=== PATIENT | female | born 1985 | race Caucasian/White ===

== ENCOUNTER 2019-09-14 17:19 | Observation (INO) | payer BC ==
[~2019-09-14] VITALS: Ht 162.6 cm; Wt 61.0 kg
[2019-09-14] MEDS ORDERED: ONDANSETRON PF 4 MG/2 ML VIAL. IVP ONE (17:45)
[2019-09-14] MEDS ORDERED: IV NORMAL SALINE 1000ML BAG 1,000 ML IV ONE (17:45)
[2019-09-14 17:47] LABS: BASO % 0 % (0-3); EOS # 0.1 x10^3/uL (0.0-0.7); EOS % 1 % (0-3); HEMATOCRIT 36.6 % (36.0-47.0); HEMOGLOBIN 12.9 g/dL (12.0-15.5); LYMPH # 2.2 x10^3/uL (1.0-4.8); LYMPH % 21 % (24-48); MEAN CORPUSCULAR HEMOGLOBIN 32 pg (25-35); MEAN CORPUSCULAR HGB CONC 35 g/dL (31-37); MEAN CORPUSCULAR VOLUME 92 fL (79-100); MONO # 0.6 x10^3/uL (0.0-1.1); MONO % 6 % (0-9); NEUT # 7.8 x10^3/uL (1.8-7.7); NEUT % 73 % (31-73); PLATELET COUNT 227 x10^3/uL (140-400); RED BLOOD COUNT 3.98 x10^6/uL (3.50-5.40); RED CELL DISTRIBUTION WIDTH 12.6 % (11.5-14.5); WHITE BLOOD COUNT 10.8 x10^3/uL (4.0-11.0)
[2019-09-14 18:00] LABS: CALCIUM 8.3 mg/dL (8.5-10.1); CREATININE 0.9 mg/dL (0.6-1.0); GFR 72.1; POTASSIUM 3.2 mmol/L (3.5-5.1)
[2019-09-14 18:09] LABS: ALBUMIN 3.7 g/dL (3.4-5.0); ALBUMIN/GLOBULIN RATIO 1.2 (1.0-1.7); TOTAL BILIRUBIN 0.5 mg/dL (0.2-1.0); TOTAL PROTEIN 6.7 g/dL (6.4-8.2)
[2019-09-14 19:18] LABS: BILIRUBIN,URINE NEGATIVE (NEG); CLARITY,URINE CLEAR; COLOR,URINE YELLOW; NITRITE,URINE NEGATIVE (NEG); PROTEIN,URINE NEGATIVE (NEG-TRACE); UROBILINOGEN,URINE 0.2 mg/dL (0.2 mg/dL)
[2019-09-14 19:45] LABS: BACTERIA,URINE FEW /HPF (0-FEW); RBC,URINE TNTC /HPF (0-2); SQUAMOUS EPITHELIAL CELL,UR FEW /LPF
[2019-09-14] MEDS: POTASSIUM CHLORIDE 20 MEQ TABLET.ER. PO ONE ×2 (20:00→20:17)
--- NOTE | 2019-09-14 20:20 | RAD ---
[facility] OB ultrasound. INDICATION: Left pelvic pain. TECHNIQUE: Transabdominal and endovaginal ultrasound of the gravid uterus was performed with grayscale and color Doppler imaging. FINDINGS: Based on LMP of 08/09/2019, gestational age by dates is 5 weeks 1 day with estimated delivery date of May 15, 2020. Transabdominal images show a moderate amount of pelvic free fluid. There is suggestion of some fluid in the endometrial cavity but on endovaginal ultrasound, appropriate decidual reaction around this fluid is difficult to discern and thus considered gestational sac is not confidently excluded. After the patient went to void, the questioned intrauterine gestational sac was no longer visible. Endometrial stripe is measured 0.9 cm. Uterus measures 9.3 x 4.7 x 4.4 cm. The right ovary measures 3.8 x 2.6 x 1.6 cm and appears normal. It shows normal blood flow on spectral Doppler imaging. The left ovary is not well seen. Instead, the left adnexa, is a heterogeneous left adnexal mass 8.5 cm wide by 3.3 cm thick. IMPRESSION: In the setting of , findings are consistent with a of unknown location. Differential considerations include a completed spontaneous , ectopic , and less likely early intrauterine gestation with inaccurate dates. Recommend clinical correlation and follow-up. A ruptured ectopic has not been excluded. FOR INTERNAL CODING PURPOSES Critical result: Findings discussed with Dr. Amador at 09/14/2019 8:15 PM. RESULT CODE: (C) Electronically signed by: Samy Garcia MD (09/14/2019 8:17 PM) [facility] – [place]
--- NOTE | 2019-09-14 21:10 | PHYS DOC ---
Past Medical History Past Medical History: Endometriosis Additional Past Surgical Histo: x2 L knee Smoking Status: Never Smoker Alcohol Use: Rarely General Adult EDM: Chief Complaint: SYNCOPE HPI: HPI: Patient is a 34 year old female coming into the emergency department today for multiple complaints. Patient reports that today she has had 3 syncopal episodes. Patient reports that she does have a history of the syncopal episodes and has approximately 2 syncopal episodes every year. Her witnessed the syncopal episodes, he reports that 2 of them were while she was laying down and they lasted approximately 15 seconds. Patient's reports that he did not notice any shaking or tremors prior to syncopal episode but reports that 1 time she did stiffen up prior to having a syncopal episode. Patient is also reporting nausea and vomiting with the syncopal episodes. Patient is currently , she states that the was confirmed yesterday but today she began to have vaginal bleeding. She describes the bleeding as spotting on pantiliners but whenever she urinates there is increased blood in the toilet. She reports that she is not saturating any pantiliners. Her last menstrual mercy od was August 09, 2019, she is 2 para 1, with a history of endometriosis. She reports sharp crampy pain that began in the left lower quadrant today. She denies any radiation of the pain. She rates the pain 10 out of 10, she states the pain is better when she is lying flat, it increases when she stands up.. Patient has not taken anything today for pain and reports that her last meal was this morning. Review of Systems: Review of Systems: Constitutional: Denies fever or chills. [] Eyes: Denies change in visual acuity. [] HENT: Denies nasal congestion or sore throat. [] Respiratory: Denies cough or shortness of breath. [] Cardiovascular: Denies chest pain or edema. [] GI: Denies bloody stools, see HPI. [] : Denies dysuria, urinary frequency. [] Musculoskeletal: Denies back pain [] Neurologic: Denies headache, focal weakness or sensory changes, see HPI [] Psychiatric: Denies depression or anxiety. [] Heart Score: Risk Factors: Risk Factors: DM, Current or recent (<one month) smoker, HTN, HLP, family history of CAD, obesity. Risk Scores: Score 0 - 3: 2.5% MACE over next 6 weeks - Discharge Home Score 4 - 6: 20.3% MACE over next 6 weeks - Admit for Clinical Observation Score 7 - 10: 72.7% MACE over next 6 weeks - Early Invasive Strategies Current Medications: Current Medications Medications (Trade) Dose Ordered Sig/Vargas Start Time Stop Time Status Last Admin Dose Admin Ondansetron HCl (Zofran) 4 mg 1X ONCE 09/14/19 17:45 09/14/19 17:46 DC 09/14/19 17:51 4 MG Potassium Chloride (Klor-Con) 40 meq 1X ONCE 09/14/19 20:00 09/14/19 20:06 DC 09/14/19 20:17 40 MEQ Sodium Chloride 1,000 ml @ 1,000 mls/hr 1X ONCE 09/14/19 17:45 09/14/19 18:44 DC 09/14/19 17:50 1,000 MLS/HR Allergies: Allergies: Allergies Coded Allergies Type Severity Reaction Last Updated Verified No Known Drug Allergies 09/14/19 No Physical Exam: PE: Constitutional: Well developed, well nourished, no acute distress, non-toxic appearance. [] HENT: Normocephalic, atraumatic, bilateral external ears normal, oropharynx dry, lips dry, nose normal. [] Eyes: PERRLA, EOMI, conjunctiva normal, no discharge. [] Neck: Normal range of motion, no stridor. [] Cardiovascular:Heart rate regular rhythm, no murmur [] Lungs & Thorax: Bilateral breath sounds clear to auscultation, Respirations even and unlabored, no retractions, no respiratory distress [] Abdomen: Bowel sounds normal, soft, no masses, no pulsatile masses, tenderness with palpation to left lower quadrant, and suprapubic region Pelvic Exam: [employer] Worker present Stella REDDY External Genitalia: Normal Skin Speculum: Normal vaginal mucosa, bloody cervical discharge, office appears closed Bimanual: No adnexal masses, left adnexal tenderness, No CMT Skin: Warm, dry, no erythema, no rash. [] Extremities: No tenderness, no cyanosis, no clubbing, ROM intact, no edema. [] Neurologic: Alert and oriented X 3, normal motor function, normal sensory function, no focal deficits noted. [] Psychologic: Affect anxious, judgement normal, mood normal. [] Current Patient Data: Labs: Laboratory Tests Test 09/14/19 17:30 09/14/19 19:00 09/14/19 19:09 White Blood Count 10.8 x10^3/uL (4.0-11.0) Red Blood Count 3.98 x10^6/uL (3.50-5.40) Hemoglobin 12.9 g/dL (12.0-15.5) Hematocrit 36.6 % (36.0-47.0) Mean Corpuscular Volume 92 fL (79-100) Mean Corpuscular Hemoglobin 32 pg (25-35) Mean Corpuscular Hemoglobin Concent 35 g/dL (31-37) Red Cell Distribution Width 12.6 % (11.5-14.5) Platelet Count 227 x10^3/uL (140-400) Neutrophils (%) (Auto) 73 % (31-73) Lymphocytes (%) (Auto) 21 % (24-48) L Monocytes (%) (Auto) 6 % (0-9) Eosinophils (%) (Auto) 1 % (0-3) Basophils (%) (Auto) 0 % (0-3) Neutrophils # (Auto) 7.8 x10^3/uL (1.8-7.7) H Lymphocytes # (Auto) 2.2 x10^3/uL (1.0-4.8) Monocytes # (Auto) 0.6 x10^3/uL (0.0-1.1) Eosinophils # (Auto) 0.1 x10^3/uL (0.0-0.7) Basophils # (Auto) 0.0 x10^3/uL (0.0-0.2) Maternal Serum HCG Beta Subunit 458 mIU/mL (0-5) H Sodium Level 137 mmol/L (136-145) Potassium Level 3.2 mmol/L (3.5-5.1) L Chloride Level 101 mmol/L (98-107) Carbon Dioxide Level 24 mmol/L (21-32) Anion Gap 12 (6-14) Blood Urea Nitrogen 12 mg/dL (7-20) Creatinine 0.9 mg/dL (0.6-1.0) Estimated GFR (Cockcroft-Gault) 72.1 BUN/Creatinine Ratio 13 (6-20) Glucose Level 114 mg/dL (70-99) H Calcium Level 8.3 mg/dL (8.5-10.1) L Total Bilirubin 0.5 mg/dL (0.2-1.0) Aspartate Amino Transferase (AST) 15 U/L (15-37) Alanine Aminotransferase (ALT) 18 U/L (14-59) Alkaline Phosphatase 40 U/L (46-116) L Total Protein 6.7 g/dL (6.4-8.2) Albumin 3.7 g/dL (3.4-5.0) Albumin/Globulin Ratio 1.2 (1.0-1.7) Lipase 126 U/L (73-393) Urine Collection Type Unknown Urine Color Yellow Urine Clarity Clear Urine pH 7.0 (<5.0-8.0) Urine Specific [place] 1.020 (1.000-1.030) Urine Protein Negative mg/dL (NEG-TRACE) Urine Glucose (UA) Negative mg/dL (NEG) Urine Ketones (Stick) Trace mg/dL (NEG) Urine Blood Large (NEG) Urine Nitrite Negative (NEG) Urine Bilirubin Negative (NEG) Urine Urobilinogen Dipstick 0.2 mg/dL (0.2 mg/dL) Urine Leukocyte Esterase Negative (NEG) Urine RBC Tntc /HPF (0-2) Urine WBC 1-4 /HPF (0-4) Urine Squamous Epithelial Cells Few /LPF Urine Bacteria Few /HPF (0-FEW) POC Urine HCG, Qualitative Hcg positive (Negative) Laboratory Tests 09/14/19 17:30 Laboratory Tests 09/14/19 17:30 Vital Signs: Vital Signs Date Time Temp Pulse Resp B/P (MAP) Pulse Ox O2 Delivery O2 Flow Rate FiO2 09/14/19 17:25 99.3 72 16 102/71 (81) 99 Room Air 99.3 EKG: EKG: [] Radiology/Procedures: Radiology/Procedures: PROCEDURE: OB < 14 WKS First Res[facility] OB ultrasound. INDICATION: Left pelvic pain. TECHNIQUE: Transabdominal and endovaginal ultrasound of the gravid uterus was performed with grayscale and color Doppler imaging. FINDINGS: Based on LMP of 08/09/2019, gestational age by dates is 5 weeks 1 day with estimated delivery date of May 15, 2020. Transabdominal images show a moderate amount of pelvic free fluid. There is suggestion of some fluid in the endometrial cavity but on endovaginal ultrasound, appropriate decidual reaction around this fluid is difficult to discern and thus considered gestational sac is not confidently excluded. After the patient went to void, the questioned intrauterine gestational sac was no longer visible. Endometrial stripe is measured 0.9 cm. Uterus measures 9.3 x 4.7 x 4.4 cm. The right ovary measures 3.8 x 2.6 x 1.6 cm and appears normal. It shows normal blood flow on spectral Doppler imaging. The left ovary is not well seen. Instead, the left adnexa, is a heterogeneous left adnexal mass 8.5 cm wide by 3.3 cm thick. IMPRESSION: In the setting of , findings are consistent with a of unknown location. Differential considerations include a completed spontaneous , ectopic , and less likely early intrauterine gestation with inaccurate dates. Recommend clinical correlation and follow-up. A ruptured ectopic has not been excluded. [] Course & Med Decision Making: Course & Med Decision Making Pertinent Labs and Imaging studies reviewed. (See chart for details) Physical exam is concerning for ruptured ectopic . Work-up includes beta-hCG, CMP, CBC, UA, urine frag, lipase, and type and Rh. Will conduct pelvic exam and order a obstetrics ultrasound. Patient declines pain medication 1 L of normal saline and 4 mg of Zofran ordered Patient requests that ultrasound be performed prior to pelvic exam. 2039 During ambulation from bathroom patient became very lightheaded and was unable to ambulate. 2049-I spoke with Dr. Cleveland and advised of the abnormal ultrasound findings and patient near syncope when up to the bathroom. We will have the nurse prepare a surgical consent for laparoscopic left salpingectomy with possible oophorectomy. We will also order COVID-19 test for surgery. Will admit patient to Dr. Cleveland [] Era Disclaimer: Era Disclaimer: This electronic medical record was generated, in whole or in part, using a voice recognition dictation system. Departure Departure Impression: Primary Impression: Vaginal bleeding affecting early Additional Impression: Ectopic Qualified Codes: O00.90 - Unspecified ectopic without intrauterine Disposition: ADMITTED INPATIENT Admitting Physician: PASCUAL (Peghee) Condition: STABLE Referrals: UNKNOWN PCP NAME (PCP) Justicifation of Admission Dx: Justifications for Admission: Justification of Admission Dx: Yes Comments: Ruptured ectopic JUANY WELCH SLEDGER Sep 14, 2019 21:10
[2019-09-14] MEDS ORDERED: ROCURONIUM 50 MG/5 ML VIAL. ONE (21:23)
[2019-09-14] MEDS ORDERED: SUCCINYLCHOLINE 200 MG/10 ML VIAL. ONE (21:23)
[2019-09-14] MEDS ORDERED: fentaNYL PF VIAL 100 MCG/2 ML VIAL ONE (21:24)
[2019-09-14] MEDS ORDERED: SEVOFLURANE 31 TO 60 MINUTES. IH ONE (21:24)
[2019-09-14] MEDS ORDERED: ONDANSETRON PF 4 MG/2 ML VIAL. ONE (21:24)
[2019-09-14] MEDS ORDERED: PROPOFOL 10 MG/ML (20ML) VIAL. IV ONE ×2 (21:24→23:18)
[2019-09-14] MEDS ORDERED: DEXAMETHASONE SOD PHOS 20 MG/5 ML VIAL. ONE (21:24)
[2019-09-14] MEDS ORDERED: LIDOCAINE 2% PF 5 ML VIAL. ONE (21:24)
[2019-09-14] MEDS ORDERED: KETOROLAC 30 MG/ML VIAL. ONE (21:25)
[2019-09-14] MEDS ORDERED: fentaNYL PF VIAL 100 MCG/2 ML VIAL IV ONE (21:30)
[2019-09-14] MEDS ORDERED: ONDANSETRON PF 4 MG/2 ML VIAL. IV ONE (21:30)
[2019-09-14] MEDS ORDERED: IV RINGERS,LACTATED 1000ML 1,000 ML IV SCH (21:33)
[2019-09-14] MEDS ORDERED: SURGICEL HEMOSTAT 4X8 EACH. ONE (21:38)
--- NOTE | 2019-09-14 21:38 | PDOC1 ---
History and Physical Date of Admission Date of Admission DATE: 09/14/19 TIME: 21:33 Identification/Chief Complaint Chief Complaint abd pain Source Source: Chart review, Patient History of Present Illness History of Present Illness 34 y/o @ 6 wks by LMP with LLQ sharp pain that continued to worsen today. SHe also reports syncopal episodes for a few seconds followed by nausea with emesis. She reports h/o endometriosis. HCG 500. Pelvic sono with 8 cm mass in Left adnexa and free fluid in abdomen. Past Surgical History Past Surgical History: Tonsillectomy, Other (wisdom tooth and LPSC for endometriosis) Current Problem List Problem List Problems Medical Problems: (1) Threatened miscarriage in early Status: Acute (2) UTI (urinary tract infection) Status: Acute (3) Vaginal bleeding affecting early Status: Acute Current Medications Current Medications Current Medications Sodium Chloride 1,000 ml @ 1,000 mls/hr 1X ONCE IV Last administered on 09/14/19at 17:50; Start 09/14/19 at 17:45; Stop 09/14/19 at 18:44; Status DC Ondansetron HCl (Zofran) 4 mg 1X ONCE IVP Last administered on 09/14/19at 17:51; Start 09/14/19 at 17:45; Stop 09/14/19 at 17:46; Status DC Potassium Chloride (Klor-Con) 40 meq 1X ONCE PO ; Start 09/14/19 at 20:00; Stop 09/14/19 at 20:06; Status DC Fentanyl Citrate (Fentanyl 2ml Vial) 50 mcg 1X ONCE IV ; Start 09/14/19 at 21:30; Stop 09/14/19 at 21:31; Status DC Ondansetron HCl (Zofran) 4 mg 1X ONCE IV ; Start 09/14/19 at 21:30; Stop 09/14/19 at 21:31; Status DC Succinylcholine Chloride (Anectine) 200 mg STK-MED ONCE .ROUTE ; Start 09/14/19 at 21:23; Stop 09/14/19 at 21:24; Status DC Rocuronium Lamont (Zemuron) 50 mg STK-MED ONCE .ROUTE ; Start 09/14/19 at 21:23; Stop 09/14/19 at 21:24; Status DC Fentanyl Citrate (Fentanyl 2ml Vial) 100 mcg STK-MED ONCE .ROUTE ; Start 09/14/19 at 21:24; Stop 09/14/19 at 21:24; Status DC Sevoflurane (Ultane) 30 ml STK-MED ONCE IH ; Start 09/14/19 at 21:24; Stop 09/14/19 at 21:25; Status DC Propofol (Diprivan) 200 mg STK-MED ONCE IV ; Start 09/14/19 at 21:24; Stop 09/14/19 at 21:25; Status DC Lidocaine HCl (Lidocaine Pf 2% Vial) 5 ml STK-MED ONCE .ROUTE ; Start 09/14/19 at 21:24; Stop 09/14/19 at 21:25; Status DC Dexamethasone Sodium Phosphate (Decadron) 20 mg STK-MED ONCE .ROUTE ; Start 09/14/19 at 21:24; Stop 09/14/19 at 21:25; Status DC Ondansetron HCl (Zofran) 4 mg STK-MED ONCE .ROUTE ; Start 09/14/19 at 21:24; Stop 09/14/19 at 21:25; Status DC Ketorolac Tromethamine (Toradol 30mg Vial) 30 mg STK-MED ONCE .ROUTE ; Start 09/14/19 at 21:25; Stop 09/14/19 at 21:25; Status DC Allergies Allergies: Coded Allergies: No Known Drug Allergies (Unverified , 09/14/19) ROS General: YES: Fatigue, Malaise, Appetite; No: Chills, Night Sweats, Other PSYCHOLOGICAL ROS: YES: Anxiety; No: Behavioral Disorder, Concentration difficultie, Decreased libido, Depression, Disorientation, Hallucinations, Hostility, Irritablity, Memory difficulties, Mood Swings, Obsessive thoughts, Physical abuse, Sexual abuse, Sleep disturbances, Suicidal ideation, Other Eyes: No Blurry vision, No Decreased vision, No Double vision, No Dry eyes, No Excessive tearing, No Eye Pain, No Itchy Eyes, No Loss of vision, No Photophobia, No Scotomata, No Uses contacts, No Uses glasses, No Other HEENT: No: Heacaches, Visual Changes, Hearing change, Nasal congestion, Nasal discharge, Oral lesions, Sinus pain, Sore Throat, Epistaxis, Sneezing, Snoring, Tinnitus, Vertigo, Vocal changes, Other ALLERGY AND IMMUNOLOGY: No: Hives, Insect Bite Sensitivity, Itchy/Watery Eyes, Nasal Congestion, Post Nasal Drip, Seasonal Allergies, Other Hematological and Lymphatic: No: Bleeding Problems, Blood Clots, Blood Transfusions, Brusing, Night Sweats, Pallor, Swollen Lymph Nodes, Other ENDOCRINE: No: Breast Changes, Galactorrhea, Hair Pattern Changes, Hot Flashes, Malaise/lethargy, Mood Swings, Palpitations, Polydipsia/polyuria, Skin Changes, Temperature Intolerance, Unexpected Weight Changes, Other Respiratory: No: Cough, Hemoptysis, Orthopnea, Pleuritic Pain, Shortness of breath, SOB with excertion, Sputum Changes, Stridor, Tachypnea, Wheezing, Other Cardiovascular: No Chest Pain, No Palpitations, No Orthopnea, No Paroxysmal Noc . Dyspnea, No Edema, No Lt Headedness, No Other Gastrointestinal: Yes Nausea, Yes Vomiting, Yes Abdominal Pain Genitourinary: No Dysuria, No Frequency, No Incontinence, No Hematuria, No Retention, No Discharge, No Urgency, No Pain, No Flank Pain, No Other, No , No , No , No , No , No , No Skin: No Dry Skin, No Eczema, No Hair Changes, No Lumps, No Mole Changes, No Mottling, No Nail Changes, No Pruritus, No Rash, No Skin Lesion Changes, No Other, No Acne Physical Exam General: Alert, Oriented X3, Cooperative HEENT: Mucous membr. moist/pink Lungs: Clear to auscultation Heart: S1S2 Abdomen: Soft, Other (LLQ tenderness with rebound tenderness) PELVIC: Other (BME deferred) Psych/Mental Status: Mental status NL Vitals Vitals Vital Signs Date Time Temp Pulse Resp B/P (MAP) Pulse Ox O2 Delivery O2 Flow Rate FiO2 09/14/19 20:32 91 128/74 (92) 100 Room Air 09/14/19 18:09 20 09/14/19 17:25 99.3 99.3 Labs Labs Laboratory Tests Test 09/14/19 17:30 09/14/19 19:00 09/14/19 19:09 White Blood Count 10.8 x10^3/uL (4.0-11.0) Red Blood Count 3.98 x10^6/uL (3.50-5.40) Hemoglobin 12.9 g/dL (12.0-15.5) Hematocrit 36.6 % (36.0-47.0) Mean Corpuscular Volume 92 fL (79-100) Mean Corpuscular Hemoglobin 32 pg (25-35) Mean Corpuscular Hemoglobin Concent 35 g/dL (31-37) Red Cell Distribution Width 12.6 % (11.5-14.5) Platelet Count 227 x10^3/uL (140-400) Neutrophils (%) (Auto) 73 % (31-73) Lymphocytes (%) (Auto) 21 % (24-48) Monocytes (%) (Auto) 6 % (0-9) Eosinophils (%) (Auto) 1 % (0-3) Basophils (%) (Auto) 0 % (0-3) Neutrophils # (Auto) 7.8 x10^3/uL (1.8-7.7) Lymphocytes # (Auto) 2.2 x10^3/uL (1.0-4.8) Monocytes # (Auto) 0.6 x10^3/uL (0.0-1.1) Eosinophils # (Auto) 0.1 x10^3/uL (0.0-0.7) Basophils # (Auto) 0.0 x10^3/uL (0.0-0.2) Maternal Serum HCG Beta Subunit 458 mIU/mL (0-5) Sodium Level 137 mmol/L (136-145) Potassium Level 3.2 mmol/L (3.5-5.1) Chloride Level 101 mmol/L (98-107) Carbon Dioxide Level 24 mmol/L (21-32) Anion Gap 12 (6-14) Blood Urea Nitrogen 12 mg/dL (7-20) Creatinine 0.9 mg/dL (0.6-1.0) Estimated GFR (Cockcroft-Gault) 72.1 BUN/Creatinine Ratio 13 (6-20) Glucose Level 114 mg/dL (70-99) Calcium Level 8.3 mg/dL (8.5-10.1) Total Bilirubin 0.5 mg/dL (0.2-1.0) Aspartate Amino Transf (AST/SGOT) 15 U/L (15-37) Alanine Aminotransferase (ALT/SGPT) 18 U/L (14-59) Alkaline Phosphatase 40 U/L (46-116) Total Protein 6.7 g/dL (6.4-8.2) Albumin 3.7 g/dL (3.4-5.0) Albumin/Globulin Ratio 1.2 (1.0-1.7) Lipase 126 U/L (73-393) Urine Collection Type Unknown Urine Color Yellow Urine Clarity Clear Urine pH 7.0 (<5.0-8.0) Urine Specific [place] 1.020 (1.000-1.030) Urine Protein Negative mg/dL (NEG-TRACE) Urine Glucose (UA) Negative mg/dL (NEG) Urine Ketones (Stick) Trace mg/dL (NEG) Urine Blood Large (NEG) Urine Nitrite Negative (NEG) Urine Bilirubin Negative (NEG) Urine Urobilinogen Dipstick 0.2 mg/dL (0.2 mg/dL) Urine Leukocyte Esterase Negative (NEG) Urine RBC Tntc /HPF (0-2) Urine WBC 1-4 /HPF (0-4) Urine Squamous Epithelial Cells Few /LPF Urine Bacteria Few /HPF (0-FEW) Bedside Urine HCG, Qualitative Hcg positive (Negative) Laboratory Tests Test 09/14/19 17:30 09/14/19 19:00 09/14/19 19:09 White Blood Count 10.8 x10^3/uL (4.0-11.0) Red Blood Count 3.98 x10^6/uL (3.50-5.40) Hemoglobin 12.9 g/dL (12.0-15.5) Hematocrit 36.6 % (36.0-47.0) Mean Corpuscular Volume 92 fL (79-100) Mean Corpuscular Hemoglobin 32 pg (25-35) Mean Corpuscular Hemoglobin Concent 35 g/dL (31-37) Red Cell Distribution Width 12.6 % (11.5-14.5) Platelet Count 227 x10^3/uL (140-400) Neutrophils (%) (Auto) 73 % (31-73) Lymphocytes (%) (Auto) 21 % (24-48) Monocytes (%) (Auto) 6 % (0-9) Eosinophils (%) (Auto) 1 % (0-3) Basophils (%) (Auto) 0 % (0-3) Neutrophils # (Auto) 7.8 x10^3/uL (1.8-7.7) Lymphocytes # (Auto) 2.2 x10^3/uL (1.0-4.8) Monocytes # (Auto) 0.6 x10^3/uL (0.0-1.1) Eosinophils # (Auto) 0.1 x10^3/uL (0.0-0.7) Basophils # (Auto) 0.0 x10^3/uL (0.0-0.2) Maternal Serum HCG Beta Subunit 458 mIU/mL (0-5) Sodium Level 137 mmol/L (136-145) Potassium Level 3.2 mmol/L (3.5-5.1) Chloride Level 101 mmol/L (98-107) Carbon Dioxide Level 24 mmol/L (21-32) Anion Gap 12 (6-14) Blood Urea Nitrogen 12 mg/dL (7-20) Creatinine 0.9 mg/dL (0.6-1.0) Estimated GFR (Cockcroft-Gault) 72.1 BUN/Creatinine Ratio 13 (6-20) Glucose Level 114 mg/dL (70-99) Calcium Level 8.3 mg/dL (8.5-10.1) Total Bilirubin 0.5 mg/dL (0.2-1.0) Aspartate Amino Transf (AST/SGOT) 15 U/L (15-37) Alanine Aminotransferase (ALT/SGPT) 18 U/L (14-59) Alkaline Phosphatase 40 U/L (46-116) Total Protein 6.7 g/dL (6.4-8.2) Albumin 3.7 g/dL (3.4-5.0) Albumin/Globulin Ratio 1.2 (1.0-1.7) Lipase 126 U/L (73-393) Urine Collection Type Unknown Urine Color Yellow Urine Clarity Clear Urine pH 7.0 (<5.0-8.0) Urine Specific [place] 1.020 (1.000-1.030) Urine Protein Negative mg/dL (NEG-TRACE) Urine Glucose (UA) Negative mg/dL (NEG) Urine Ketones (Stick) Trace mg/dL (NEG) Urine Blood Large (NEG) Urine Nitrite Negative (NEG) Urine Bilirubin Negative (NEG) Urine Urobilinogen Dipstick 0.2 mg/dL (0.2 mg/dL) Urine Leukocyte Esterase Negative (NEG) Urine RBC Tntc /HPF (0-2) Urine WBC 1-4 /HPF (0-4) Urine Squamous Epithelial Cells Few /LPF Urine Bacteria Few /HPF (0-FEW) Bedside Urine HCG, Qualitative Hcg positive (Negative) VTE Prophylaxis Ordered VTE Prophylaxis Devices: Yes VTE Pharmacological Prophylaxi: No Assessment/Plan Assessment/Plan A: Ruptured Left ectopic P: Plan LPSC Left salpingectomy with possible oophorectomy. Justicifation of Admission Dx: Justifications for Admission: Justification of Admission Dx: Yes DARIO SCHUMACHER Jr, MD Sep 14, 2019 21:38
[2019-09-14] MEDS ORDERED: BUPIVACAINE-EPI 0.25%-1:200000 MPF 30 ML VIAL. ONE (21:39)
[2019-09-14] MEDS ORDERED: SCOPOLAMINE 1.5MG PATCH. TD ONE ×2 (21:44→22:00)
[2019-09-14] MEDS ORDERED: ONDANSETRON PF 4 MG/2 ML VIAL. IV PRN ×2 (21:45→23:15)
[2019-09-14] MEDS ORDERED: ceFAZolin SODIUM IV Push 1 GM VIAL. IVP ONE (21:45)
[2019-09-14] MEDS ORDERED: HYDROmorphone 2 MG/ML VIAL IV PRN (21:45)
[2019-09-14] MEDS ORDERED: PROCHLORPERAZINE 10 MG/2 ML VIAL. IV PRN ×2 (21:45→23:15)
[2019-09-14] MEDS ORDERED: MORPHINE SULFATE 2 MG/ML VIAL. IV PRN (21:45)
[2019-09-14] MEDS ORDERED: fentaNYL PF VIAL 100 MCG/2 ML VIAL IV PRN ×2 (21:45)
[2019-09-14] MEDS ORDERED: NEOSTIGMINE METHYLSULFATE 5 MG/5 ML SYRINGE. ONE (22:52)
[2019-09-14] MEDS ORDERED: GLYCOPYRROLATE 1 MG/5 ML VIAL. ONE (22:53)
--- NOTE | 2019-09-14 23:14 | PDOC ---
BRIEF OPERATIVE NOTE Date: Sep 14, 2019 Pre-Op Diagnosis Ruptured Left Ectopic Post-Op Diagnosis Same Procedure Performed [facility] Left Salpingectomy Surgeon Dr. Cleveland Anesthesia Type: General Blood Loss 50 ml Specimens Obtained Left fallopian tube with ectopic Findings Ruptured Left ectopic , nml Right fallopian tube and nml ovaries gretchen.; 50 ml blood clot in abdomen Complications none Operative Note see dictation DARIO CLEVELAND Jr, MD Sep 14, 2019 23:14
[2019-09-14] MEDS ORDERED: ZOLPIDEM 5 MG TABLET. PO PRN (23:15)
[2019-09-14] MEDS ORDERED: KETOROLAC 30 MG/ML VIAL. IV PRN (23:15)
[2019-09-14] MEDS ORDERED: diphenhydrAMINE 50 MG/ML VIAL IV PRN (23:15)
[2019-09-14] MEDS ORDERED: oxyCODONE/APAP 5/325 1 TAB TABLET PO PRN (23:15)
[2019-09-14] MEDS ORDERED: DEXTROSE 50% 25 GM / 50ML DISP.SYRIN. IV PRN (23:15)
[2019-09-14] MEDS ORDERED: diphenhydrAMINE HCL 25 MG CAPSULE PO PRN (23:15)
[2019-09-14] MEDS ORDERED: SIMETHICONE 80 MG TAB.CHEW PO PRN (23:15)
[2019-09-14] MEDS ORDERED: 0.9 % SODIUM CHLORIDE 10 ML DISP.SYRIN. IV PRN (23:15)
[2019-09-14] MEDS ORDERED: CALCIUM CARBONATE 500 MG TAB.CHEW PO PRN (23:15)
[2019-09-15] VITALS (9 sets, daily range): BP systolic 91–109; BP diastolic 40–67
--- NOTE | 2019-09-15 00:52 | OP ---
DATE OF SURGERY: 09/14/2019 PREOPERATIVE DIAGNOSIS: Ruptured left ectopic . POSTOPERATIVE DIAGNOSIS: Ruptured left ectopic . PROCEDURE: Laparoscopic left salpingectomy. SURGEON: Jeffry Cleveland MD ANESTHESIA: GETA. ESTIMATED BLOOD LOSS: 50 mL. COMPLICATIONS: None. FINDINGS: Ruptured left ectopic with 50 mL of blood clot in the abdomen with some active bleeding from the left fallopian tube, normal right fallopian tube, normal ovaries bilaterally. SUMMARY: A 34-year-old 2, para 1 at about 6-7 weeks' gestation who presented with acute abdominal pain in the left lower quadrant that continued to worsen with light vaginal spotting. The patient was found to have a ruptured ectopic in the left adnexal area per sonogram and clinical findings. She was counseled on the risks, benefits and expectations of laparoscopic left salpingectomy and possibility of oophorectomy and voiced clear understanding to proceed. DESCRIPTION OF PROCEDURE: The patient was taken to surgery suite and placed in dorsal lithotomy position. She was prepped with Betadine solution for vaginal prep and ChloraPrep for abdominal prep. After adequate anesthesia, bivalve speculum was placed vaginally. The anterior lip of the cervix grasped with single tooth tenaculum. Cutler uterine manipulator was then placed. The bivalve speculum was removed. Attention was now placed on abdomen. Small transverse skin incision was made just below the umbilicus with a scalpel. The Veress needle was then placed through the infraumbilical incision site. The abdomen was allowed to insufflate up to 1-1/2 liters CO2 gas. The Veress needle was then removed, 5 mm trocar was placed. The scope was positioned. There was moderate amount of blood in the abdominal cavity. Two additional ports were placed in the left lower quadrant, of which one was a 5-mm port as well as an 11 mm port. With aid of suction irrigation, the blood clot was removed. There appeared to be active bleeding still from the left fallopian tube, which also contained the ectopic . With the aid of the EnSeal device, the distal left salpingectomy was performed. The left fallopian tube including the ectopic was removed with aid of Endobag. Adnexa was hemostatic. Suction irrigation was utilized to verify good hemostasis and remove additional blood clot. Small amount of normal saline was left in posterior cul-de-sac. The right fallopian tube and right ovary appeared normal. Left ovary appeared normal. The trocars were then removed under direct visualization. The abdomen was allowed to deflate as much as possible along with mechanical manipulation. The 11 mm port was closed at the fascial layer using 2-0 Vicryl suture in [id number] manner. The 3 skin incisions were closed at the skin level using 4-0 Vicryl suture in a subcuticular manner. A 0.25% Marcaine with epinephrine was injected at each incision site. The uterine acorn manipulator and single tooth tenaculum were removed. The patient tolerated the procedure well and was taken to recovery room in stable condition. Sponge and needle count correct x 3. JEFFRY CLEVELAND MD DR: ODALIS/violet JOB#: [id number] / [id number]
[2019-09-15 05:04] LABS: BASO % 0 % (0-3); EOS % 0 % (0-3); HEMATOCRIT 31.9 % (36.0-47.0); HEMOGLOBIN 11.1 g/dL (12.0-15.5); LYMPH # 0.7 x10^3/uL (1.0-4.8); LYMPH % 7 % (24-48); MEAN CORPUSCULAR HEMOGLOBIN 32 pg (25-35); MEAN CORPUSCULAR HGB CONC 35 g/dL (31-37); MEAN CORPUSCULAR VOLUME 92 fL (79-100); MONO # 0.2 x10^3/uL (0.0-1.1); MONO % 2 % (0-9); NEUT # 9.2 x10^3/uL (1.8-7.7); NEUT % 91 % (31-73); PLATELET COUNT 199 x10^3/uL (140-400); RED BLOOD COUNT 3.45 x10^6/uL (3.50-5.40); RED CELL DISTRIBUTION WIDTH 12.4 % (11.5-14.5); WHITE BLOOD COUNT 10.1 x10^3/uL (4.0-11.0)
[2019-09-15] MEDS ORDERED: GABAPENTIN 300 MG CAPSULE. PO SCH (06:00)
[2019-09-15 07:19] LABS: % BASOS 1 % (0-3); % LYMPHS 10 % (24-48); % MONOS 1 % (0-10); % SEGS 88 % (35-66); PLT ESTIMATE ADEQUATE (ADEQUATE)
--- NOTE | 2019-09-15 14:59 | PDOC ---
SURGICAL PROGRESS NOTE Subjective Pt. feeling well. Pain well controlled. Vital Signs Vital Signs Date Time Temp Pulse Resp B/P (MAP) Pulse Ox O2 Delivery O2 Flow Rate FiO2 09/15/19 10:26 98.1 67 16 100/60 (73) 99 Room Air 98.1 09/14/19 23:28 10 I&O Intake and Output 09/15/19 07:00 Intake Total 2450 ml Output Total 50 ml Balance 2400 ml IV Total 2450 ml Output Estimated Blood Loss 50 ml # Voids 1 General: Alert, Oriented X3, Cooperative HEENT: Atraumatic Lungs: Clear to auscultation Heart: Regular rate Abdomen: Normal bowel sounds, Soft, No tenderness, No masses Neuro: Normal gait Psych/Mental Status: Mental status NL Labs Laboratory Tests Test 09/14/19 17:30 09/14/19 19:00 09/14/19 19:09 09/15/19 04:50 White Blood Count 10.8 x10^3/uL (4.0-11.0) 10.1 x10^3/uL (4.0-11.0) Red Blood Count 3.98 x10^6/uL (3.50-5.40) 3.45 x10^6/uL (3.50-5.40) Hemoglobin 12.9 g/dL (12.0-15.5) 11.1 g/dL (12.0-15.5) Hematocrit 36.6 % (36.0-47.0) 31.9 % (36.0-47.0) Mean Corpuscular Volume 92 fL (79-100) 92 fL (79-100) Mean Corpuscular Hemoglobin 32 pg (25-35) 32 pg (25-35) Mean Corpuscular Hemoglobin Concent 35 g/dL (31-37) 35 g/dL (31-37) Red Cell Distribution Width 12.6 % (11.5-14.5) 12.4 % (11.5-14.5) Platelet Count 227 x10^3/uL (140-400) 199 x10^3/uL (140-400) Neutrophils (%) (Auto) 73 % (31-73) 91 % (31-73) Lymphocytes (%) (Auto) 21 % (24-48) 7 % (24-48) Monocytes (%) (Auto) 6 % (0-9) 2 % (0-9) Eosinophils (%) (Auto) 1 % (0-3) 0 % (0-3) Basophils (%) (Auto) 0 % (0-3) 0 % (0-3) Neutrophils # (Auto) 7.8 x10^3/uL (1.8-7.7) 9.2 x10^3/uL (1.8-7.7) Lymphocytes # (Auto) 2.2 x10^3/uL (1.0-4.8) 0.7 x10^3/uL (1.0-4.8) Monocytes # (Auto) 0.6 x10^3/uL (0.0-1.1) 0.2 x10^3/uL (0.0-1.1) Eosinophils # (Auto) 0.1 x10^3/uL (0.0-0.7) 0.0 x10^3/uL (0.0-0.7) Basophils # (Auto) 0.0 x10^3/uL (0.0-0.2) 0.0 x10^3/uL (0.0-0.2) Maternal Serum HCG Beta Subunit 458 mIU/mL (0-5) Sodium Level 137 mmol/L (136-145) Potassium Level 3.2 mmol/L (3.5-5.1) Chloride Level 101 mmol/L (98-107) Carbon Dioxide Level 24 mmol/L (21-32) Anion Gap 12 (6-14) Blood Urea Nitrogen 12 mg/dL (7-20) Creatinine 0.9 mg/dL (0.6-1.0) Estimated GFR (Cockcroft-Gault) 72.1 BUN/Creatinine Ratio 13 (6-20) Glucose Level 114 mg/dL (70-99) Calcium Level 8.3 mg/dL (8.5-10.1) Total Bilirubin 0.5 mg/dL (0.2-1.0) Aspartate Amino Transf (AST/SGOT) 15 U/L (15-37) Alanine Aminotransferase (ALT/SGPT) 18 U/L (14-59) Alkaline Phosphatase 40 U/L (46-116) Total Protein 6.7 g/dL (6.4-8.2) Albumin 3.7 g/dL (3.4-5.0) Albumin/Globulin Ratio 1.2 (1.0-1.7) Lipase 126 U/L (73-393) Urine Collection Type Unknown Urine Color Yellow Urine Clarity Clear Urine pH 7.0 (<5.0-8.0) Urine Specific [place] 1.020 (1.000-1.030) Urine Protein Negative mg/dL (NEG-TRACE) Urine Glucose (UA) Negative mg/dL (NEG) Urine Ketones (Stick) Trace mg/dL (NEG) Urine Blood Large (NEG) Urine Nitrite Negative (NEG) Urine Bilirubin Negative (NEG) Urine Urobilinogen Dipstick 0.2 mg/dL (0.2 mg/dL) Urine Leukocyte Esterase Negative (NEG) Urine RBC Tntc /HPF (0-2) Urine WBC 1-4 /HPF (0-4) Urine Squamous Epithelial Cells Few /LPF Urine Bacteria Few /HPF (0-FEW) Bedside Urine HCG, Qualitative Hcg positive (Negative) Segmented Neutrophils % 88 % (35-66) Lymphocytes % 10 % (24-48) Monocytes % 1 % (0-10) Basophils % 1 % (0-3) Platelet Estimate Adequate (ADEQUATE) Laboratory Tests Test 09/14/19 17:30 09/14/19 19:00 09/14/19 19:09 09/15/19 04:50 White Blood Count 10.8 x10^3/uL (4.0-11.0) 10.1 x10^3/uL (4.0-11.0) Red Blood Count 3.98 x10^6/uL (3.50-5.40) 3.45 x10^6/uL (3.50-5.40) Hemoglobin 12.9 g/dL (12.0-15.5) 11.1 g/dL (12.0-15.5) Hematocrit 36.6 % (36.0-47.0) 31.9 % (36.0-47.0) Mean Corpuscular Volume 92 fL (79-100) 92 fL (79-100) Mean Corpuscular Hemoglobin 32 pg (25-35) 32 pg (25-35) Mean Corpuscular Hemoglobin Concent 35 g/dL (31-37) 35 g/dL (31-37) Red Cell Distribution Width 12.6 % (11.5-14.5) 12.4 % (11.5-14.5) Platelet Count 227 x10^3/uL (140-400) 199 x10^3/uL (140-400) Neutrophils (%) (Auto) 73 % (31-73) 91 % (31-73) Lymphocytes (%) (Auto) 21 % (24-48) 7 % (24-48) Monocytes (%) (Auto) 6 % (0-9) 2 % (0-9) Eosinophils (%) (Auto) 1 % (0-3) 0 % (0-3) Basophils (%) (Auto) 0 % (0-3) 0 % (0-3) Neutrophils # (Auto) 7.8 x10^3/uL (1.8-7.7) 9.2 x10^3/uL (1.8-7.7) Lymphocytes # (Auto) 2.2 x10^3/uL (1.0-4.8) 0.7 x10^3/uL (1.0-4.8) Monocytes # (Auto) 0.6 x10^3/uL (0.0-1.1) 0.2 x10^3/uL (0.0-1.1) Eosinophils # (Auto) 0.1 x10^3/uL (0.0-0.7) 0.0 x10^3/uL (0.0-0.7) Basophils # (Auto) 0.0 x10^3/uL (0.0-0.2) 0.0 x10^3/uL (0.0-0.2) Maternal Serum HCG Beta Subunit 458 mIU/mL (0-5) Sodium Level 137 mmol/L (136-145) Potassium Level 3.2 mmol/L (3.5-5.1) Chloride Level 101 mmol/L (98-107) Carbon Dioxide Level 24 mmol/L (21-32) Anion Gap 12 (6-14) Blood Urea Nitrogen 12 mg/dL (7-20) Creatinine 0.9 mg/dL (0.6-1.0) Estimated GFR (Cockcroft-Gault) 72.1 BUN/Creatinine Ratio 13 (6-20) Glucose Level 114 mg/dL (70-99) Calcium Level 8.3 mg/dL (8.5-10.1) Total Bilirubin 0.5 mg/dL (0.2-1.0) Aspartate Amino Transf (AST/SGOT) 15 U/L (15-37) Alanine Aminotransferase (ALT/SGPT) 18 U/L (14-59) Alkaline Phosphatase 40 U/L (46-116) Total Protein 6.7 g/dL (6.4-8.2) Albumin 3.7 g/dL (3.4-5.0) Albumin/Globulin Ratio 1.2 (1.0-1.7) Lipase 126 U/L (73-393) Urine Collection Type Unknown Urine Color Yellow Urine Clarity Clear Urine pH 7.0 (<5.0-8.0) Urine Specific [place] 1.020 (1.000-1.030) Urine Protein Negative mg/dL (NEG-TRACE) Urine Glucose (UA) Negative mg/dL (NEG) Urine Ketones (Stick) Trace mg/dL (NEG) Urine Blood Large (NEG) Urine Nitrite Negative (NEG) Urine Bilirubin Negative (NEG) Urine Urobilinogen Dipstick 0.2 mg/dL (0.2 mg/dL) Urine Leukocyte Esterase Negative (NEG) Urine RBC Tntc /HPF (0-2) Urine WBC 1-4 /HPF (0-4) Urine Squamous Epithelial Cells Few /LPF Urine Bacteria Few /HPF (0-FEW) Bedside Urine HCG, Qualitative Hcg positive (Negative) Segmented Neutrophils % 88 % (35-66) Lymphocytes % 10 % (24-48) Monocytes % 1 % (0-10) Basophils % 1 % (0-3) Platelet Estimate Adequate (ADEQUATE) Problem List Problems Medical Problems: (1) Threatened miscarriage in early Status: Acute (2) UTI (urinary tract infection) Status: Acute (3) Vaginal bleeding affecting early Status: Acute Assessment/Plan A: POD#1 s/p LPSC Left Salpingectomy P: D/c home. Justicifation of Admission Dx: Justifications for Admission: Justification of Admission Dx: Yes DARIO SCHUMACHER Jr, MD Sep 15, 2019 14:59
--- NOTE | 2019-09-15 15:02 | DISCH ---
DISCHARGE INSTRUCTIONS Condition on Discharge Condition on Discharge: Stable Activity After Discharge Activity Instructions for Disc: Activity as tolerated Lifting Instructions after Dis: No heavy lifting Driving Instructions after Dis: Do not drive today Diet after Discharge Diet after Discharge: Regular Contacting the DRRebecca after DC Call your doctor for: Concerns you may have Follow-Up Follow up with: Dr. Cleveland in 1 wk DARIO CLEVELAND Jr, MD Sep 15, 2019 15:02
--- NOTE | 2019-09-15 15:30 | NUR ---
Discharge and follow up instructions reviewed and given to pt along with a Rx for percocet. Pt denied and questions or complaints, pt ambulated out of the hospital with staff by her side.
--- NOTE | 2019-09-17 17:06 | PATHOLOGY ---
[facility] [place] Accession Number: [id number] . 01 Material submitted: . fallopian tube - LEFT FALLOPIAN TUBE AND ECTOPIC . Modifiers: left . 01 Clinical history: . ruptured ectopic . 02 Diagnosis: Segment of fallopian tube, laparoscopic distal left salpingectomy: - Ectopic tubal . - Hematosalpinx. - Small paratubal cyst. (JPM/db; 09/17/2019) LBQ 09/17/2019 1540 Local . 02 Electronically signed: . Raul Gonzalez MD, Pathologist NPI- [id number] . 01 Gross description: . The specimen is received in formalin, labeled "Malina Encarnacion, left fallopian tube and ectopic " and consists of an intact purple hemorrhagic fimbriated fallopian tube measuring 5.8 cm in length and up to 2.1 cm in diameter. At the fimbriated aspect there is adherent blood coagulum. Sectioning reveals a lumen ranging from pinpoint up to 1.1 cm in diameter containing blood coagulum and possible villiform tissue. or embryonic tissue is not grossly identified. [employer] sections are submitted in A1-A3. (JM; 09/16/2019) JFQ/JFQ 09/16/2019 1618 Local . 02 Pathologist provided ICD-10: O00.102, N83.6, N83.8 . 02 CPT . 064486 Specimen Comment: A courtesy copy of this report has been sent to [phone] Specimen Comment: Report sent to Performed at: [address], [place], [place] [id number] MD Job Yeung MD Phone: [phone] Performed at: 02 [facility] [address], [place] [id number] MD Raul Gonzalez MD Phone: [phone]
== END 2019-09-15 15:30 | disposition home or self-care (01) ==
LOC: ER 17:19 → INTOOBSV 21:33 → 3 NORTH 21:33
PROVIDERS: ADMIT Obstetrics & Gynecology; ATTEND Obstetrics & Gynecology
DX: O00.90 Unspecified ectopic pregnancy without intrauterine pregnancy (principal); O36.80X0 Pregnancy with inconclusive fetal viability, not applicable or unspecified; O23.41 Unspecified infection of urinary tract in pregnancy, first trimester; R42 Dizziness and giddiness; Z20.828 Contact with and (suspected) exposure to other viral communicable diseases; Z3A.01 Less than 8 weeks gestation of pregnancy
CPT/HCPCS: 36415; 59151; 76801; 80053; 81001; 81025; 83690; 84702; 85007; 85025; 86900; 86901; 88305; 96361; 96374; 96376; 99285; A7015; G0378; J0330; J0690; J1100; J2405; J2704; J2710; J3010; J3490; J7030; J7120; U0003; G0379; J1885